=== PATIENT | male | born 1965 | race Caucasian/White ===

== ENCOUNTER → 2018-03-09 | Outpatient (CLI) | payer OTHER ==
[~2018-03-09] MED LIST: MULT-506 PO
--- NOTE | 2018-03-09 14:27 | DIAGNOSTIC IMAGING REPORT ---
CHEST 2 VIEWS ROUTINE CLINICAL HISTORY: R05 [id number] COMPARISON STUDY: 09/13/2016 FINDINGS: The cardiac and mediastinal contours are normal. There is no evidence of focal pulmonary consolidation. There is no evidence of failure. No pleural effusions are visualized.[ IMPRESSION: No active disease in the chest. Electronically signed by: Braydon Flanagan M.D. 03/09/2018 2:26 PM Dictated Date/Time: 03/09/2018 2:25 PM
== END | disposition home or self-care (01) ==
LOC: C.RADBC 14:10
PROVIDERS: ATTEND Physician Assistant Medical
DX: R05 Cough (principal)